=== PATIENT | male | born 1950 | race Caucasian/White ===

== ENCOUNTER 2017-02-12 13:03 | Day surgery (SDC) | payer OTHER ==
[~2017-02-12] VITALS: Ht 185.4 cm; Wt 100.7 kg
[~2017-02-12 13:03] MED LIST: AMITRIPTYLINE H10 MG; AMLODIPINE BESYL5 MG; ASPIR-LOW81 MG PO; ASPIRIN81 M2 PO; COUMADIN5 MG PO; ELAVIL10 MG PO; FLOMAX0.4 MG PO; GERITOL COMP1 TABLET PO; LOPRESSOR25 MG PO; LOVENOX100 MG/1 M SC; METOPROLOL SUCC25 MG; METOPROLOL SUCC25 MG PO; NORCO 5/3251 TABLET PO; NORVASC5 MG PO; OXYCODONE HCL5 M1 PO; OXYCODONE-APAP1 EAC6; OXYCODONE-APAP1 EAC6 PO; OXYCONTIN10 MG PO; PERCOCET 5/31 TABLET PO; [UNRECOGNIZED DRUG - OTHER] PO
== END 2017-02-12 15:15 | disposition home or self-care (01) ==
LOC: PAIN 13:03 → SDC 13:45 → PAIN 15:15
DX: M47.22 Other spondylosis with radiculopathy, cervical region (principal); M54.2 Cervicalgia; G89.29 Other chronic pain; I10 Essential (primary) hypertension; K21.9 Gastro-esophageal reflux disease without esophagitis; E66.9 Obesity, unspecified; Z68.29 Body mass index [BMI] 29.0-29.9, adult; R73.03 Prediabetes; Z86.72 Personal history of thrombophlebitis; M47.816 Spondylosis without myelopathy or radiculopathy, lumbar region; Z79.82 Long term (current) use of aspirin; Z79.891 Long term (current) use of opiate analgesic
CPT/HCPCS: J1030; J2250; J3010; S0020

== ENCOUNTER 2017-02-19 13:36 | Day surgery (SDC) | payer OTHER ==
[~2017-02-19] VITALS: Ht 185.4 cm; Wt 100.7 kg
== END 2017-02-19 16:15 | disposition home or self-care (01) ==
LOC: PAIN 13:36 → SDC 14:00 → PAIN 14:00
DX: M47.22 Other spondylosis with radiculopathy, cervical region (principal); M54.2 Cervicalgia; G89.29 Other chronic pain; M47.816 Spondylosis without myelopathy or radiculopathy, lumbar region; I10 Essential (primary) hypertension; K21.9 Gastro-esophageal reflux disease without esophagitis; E66.9 Obesity, unspecified; R73.03 Prediabetes; Z86.718 Personal history of other venous thrombosis and embolism; M17.0 Bilateral primary osteoarthritis of knee; Z79.891 Long term (current) use of opiate analgesic; Z79.82 Long term (current) use of aspirin
CPT/HCPCS: J1030; J2250; J3010; S0020

== ENCOUNTER 2017-07-01 13:50 | Day surgery (SDC) | payer OTHER ==
[~2017-07-01] VITALS: Ht 185.4 cm; Wt 99.8 kg
== END 2017-07-01 15:41 | disposition home or self-care (01) ==
LOC: PAIN 13:50 → SDC 14:30 → PAIN 14:30
DX: M47.812 Spondylosis without myelopathy or radiculopathy, cervical region (principal); M54.12 Radiculopathy, cervical region; M47.816 Spondylosis without myelopathy or radiculopathy, lumbar region; M54.2 Cervicalgia; G89.29 Other chronic pain; I10 Essential (primary) hypertension; K21.9 Gastro-esophageal reflux disease without esophagitis; F41.8 Other specified anxiety disorders; R73.03 Prediabetes; Z79.891 Long term (current) use of opiate analgesic; Z79.82 Long term (current) use of aspirin
CPT/HCPCS: J1030; J2250; J3010; S0020

== ENCOUNTER 2017-07-18 12:24 | Day surgery (SDC) | payer OTHER ==
[~2017-07-18] VITALS: Ht 185.4 cm; Wt 99.8 kg
== END 2017-07-18 14:00 | disposition home or self-care (01) ==
LOC: PAIN 12:24
DX: M47.812 Spondylosis without myelopathy or radiculopathy, cervical region (principal); G89.29 Other chronic pain; M47.816 Spondylosis without myelopathy or radiculopathy, lumbar region; Z79.891 Long term (current) use of opiate analgesic; N40.0 Benign prostatic hyperplasia without lower urinary tract symptoms; K21.9 Gastro-esophageal reflux disease without esophagitis; I10 Essential (primary) hypertension; E73.9 Lactose intolerance, unspecified; F41.8 Other specified anxiety disorders; E66.9 Obesity, unspecified; Z68.30 Body mass index [BMI] 30.0-30.9, adult; R73.03 Prediabetes; Z79.82 Long term (current) use of aspirin; Z91.013 Allergy to seafood; Z91.041 Radiographic dye allergy status
CPT/HCPCS: J1030; J2250; J3010; S0020